=== PATIENT | female | born 1950 | race Caucasian/White ===

== ENCOUNTER 2023-07-07 12:13 | Outpatient (CLI) | payer MEDICARE, OTHER, SELFPAY ==
[2023-07-13 18:19] VITALS: BMI 34.9
--- NOTE | 2023-07-13 18:19 | WPDHOMESLEEP ---
Sleep Study - Home Unattended Date of Study: 07/07/23 Ordering Provider: Orlin Robles MD Interpreting Provider: Chiquis Reyes, DO Home Sleep Study Type: Watch PAT Height: 1.77 m Weight: 108.862 kg Body Mass Index: 34.9 Neck Circumference (inches): 15 [place]: 3 Reason for Sleep Study Re-evaluate for MIN after significant weight loss Sleep History The patient is a 72-year-old female with hypertension, hypothyroidism, history of breast cancer and MIN on CPAP that had a sleep study ordered by her primary care physician for re-evaluation of sleep apnea after significant weight loss. The patient denies awakening from sleep short of breath. She denies awakening at night with heartburn, belching or cough. He she denies snoring. She denies having trouble sleeping when she has a cold. She denies waking up gasping for air throughout the night. She denies having breathing problems at night observed by herself or others. She denies sweating excessively at night. She denies having heart palpitations or irregular heartbeats during the night. She denies falling asleep during the day and while driving. She denies sleep paralysis, cataplexy and hypnagogic / hypnopompic hallucinations. She denies having trouble at school or work due to sleepiness. She denies feeling afraid of going to sleep. She goes to bed at 9:30 p.m. on weekdays and at 10:30 p.m. on the weekends. It takes her 15-20 minutes to fall asleep. She wakes up twice throughout the night to urinate and is able to fall back asleep anywhere from a few minutes up to an hour. She wakes up at 5:00 a.m. on weekdays and between 6-630 a.m. on the weekends. She typically gets 7-8 hours of sleep per night. She will stay in bed for 15-20 minutes after waking up in the morning. She currently lives alone. She denies consuming any caffeinated beverages within 2 hours of bedtime. She denies engaging in physical exercise before bedtime. She denies reading and watching television before falling asleep. She denies taking naps in the afternoon or the evening. She does consume caffeinated beverages throughout the day. She will consume 5-6 alcoholic beverages per week. She denies tobacco and recreational drug use. [facility] Past Medical History Medical History H/O vaginal delivery History of breast cancer Hypertension Hypothyroidism Lymphedema due to malignant neoplasm right arm/ breast cancer Right ankle instability Surgical History Surgical History H/O right mastectomy H/O total knee replacement Bilat H/O vaginal hysterectomy History of tonsillectomy and adenoidectomy S/P lumpectomy of breast Social History Social History Social History: Patient is with a 1 daughter. Smoking packs per day: 0 Smoking cigarettes per day: 0.0 Smoking status: Unknown if ever smoked Alcohol intake: never Substance use: never Substance use type: does not use Lack of Transportation: No Lack of Food: Never True Current Housing: I Have Housing Concerned About Future Housing: No Difficulty Paying Gas/Electric Bills: No Difficulty Paying for Meds: No Currently Unemployed: No Education: Bachelor's Degree Difficulty w/ Childcare or Family Care: No Living arrangements: with family Occupation/Education: retired Gender identity (if verbalized by the patient): Male Sexual Orientation (if Verbalized by the Patient): Straight or Heterosexual Medications Home Medications Medication Instructions Recorded Confirmed Type anastrozole 1 mg tablet 1 mg PO DAILY #90 tabs 03/24/22 02/14/23 Rx acetaminophen 500 mg capsule 500 mg PO Q6H PRN 02/14/23 02/14/23 History beta-glucan 250 mg capsule mg PO 02/14/23 02/14/23 History semaglutide 0.25 mg or 0.5 mg (2 0.25 mg subcut WEEKLY 02/14/23
== END 2023-07-08 14:10 | disposition home or self-care (01) ==
LOC: ANHCSM 12:14
PROVIDERS: PCP Family Medicine; Visit Provider Family Medicine
DX: G47.30 Sleep apnea, unspecified (principal); G47.33 Obstructive sleep apnea (adult) (pediatric)
CPT/HCPCS: 95800

== ENCOUNTER 2023-09-22 09:04 | Outpatient (CLI) | payer MEDICARE, OTHER, SELFPAY ==
[2023-09-22 15:06] LABS: Alanine Aminotransferase 16 U/L (6-35); Albumin Level 4.4 g/dL (3.5-5.1); Alkaline Phosphatase 86 U/L (38-126); Anion Gap 6 mmol/L (4-12); Aspartate Amino Transferase 35 U/L (14-36); Bilirubin,Total 1.7 mg/dL (0.2-1.3); Blood Urea Nitrogen 12 mg/dL (7-17); Calcium 9.5 mg/dL (8.4-10.2); Carbon Dioxide 30 mmol/L (22-30); Chloride 92 mmol/L (98-107); Estimated Glomerular Filt Rate > 60; Glucose 71 mg/dL (65-110); Potassium 3.6 mmol/L (3.4-5.0); Sodium 128 mmol/L (137-145)
== END 2023-09-22 09:05 | disposition home or self-care (01) ==
PROVIDERS: PCP Family Medicine; Visit Provider Family Medicine
DX: E03.9 Hypothyroidism, unspecified (principal); I10 Essential (primary) hypertension
CPT/HCPCS: 36415; 80053; 84443

== ENCOUNTER 2024-04-26 12:33 | Outpatient (CLI) | payer MEDICARE, OTHER, SELFPAY ==
--- NOTE | ~2024-04-26 | XR_ITS ---
EXAMINATION: XR foot RT 2V DATE: 04/26/2024 12:45 INDICATION: Right foot injury and pain. TECHNIQUE: 2 views of right foot were obtained. COMPARISON: None. FINDINGS: There is severe hallux valgus. No fracture. There is moderate osteoarthritis of first metat arsophalangeal joint and mild to moderate osteoarthritis of some of the the interphalangeal joints an d midfoot joints. There is an enthesophyte at plantar aspect of the calcaneal tuberosity. There are t ension bands across the tibiofibular syndesmosis. IMPRESSION: 1. Polyarticular osteoarthritis. 2. Severe hallux valgus. Reviewed, dictated and finalized at location B. WALS SPECIALIST
== END 2024-04-26 12:34 | disposition home or self-care (01) ==
LOC: GOSHIMG 12:33
PROVIDERS: PCP Family Medicine; Visit Provider Family Medicine
DX: M19.071 Primary osteoarthritis, right ankle and foot (principal); M20.11 Hallux valgus (acquired), right foot
CPT/HCPCS: 73620

== ENCOUNTER 2024-04-27 00:20 | Day surgery (SDC) | payer MEDICARE, OTHER, SELFPAY ==
[2024-04-17 09:11] VITALS: BMI 33.8
--- OUTSIDE RECORDS SUMMARY | 2024-04-27 06:23 | XMS_ITS | Clinical Summary ---
Author Organization [facility] Address [facility] [facility] [place] [address] [place] [address] Care Team Providers Care Re Etcher Name Role Phone Omar Walter MD Primary Care Provider [phone] Allergies No known active allergies Medications amlodipine 5 MG tablet Take 5 mg by mouth daily. Active levothyroxine 112 MCG tablet Take 1 tablet by mouth daily. 02/21/2010 Active losartan-hydroch lorothiazide 100-25 MG tablet Take 1 tablet by mouth daily. Active metoprolol tartrate 25 MG tablet Take 25 mg by mouth daily. 06/08/2012 Active Social History Tobacco Use Types Packs/Day Years Used Date Smoking Tobacco: Never Smokeless Tobacco: Never Alcohol Use Standard Drinks/Week Comments Yes 3.3 (1 standard drink = 0.6 oz p ure alcohol) wine AUDIT-C Answer Date Recorded Frequency of Alcohol Consumption Never 02/24/2019 Average Number of Drinks Not on file 019 Frequency of Binge Drinking Not on file 02/03 Comments No Sex and Gender Information Value Date Recorded Sex Assigned at Not on file Legal Sex Female 8:08 PM CDT Gender Identity Choose not to disclose 7:13 AM ESTIMATOR JEWELRY Sexual Orientation Choose not to disclose 2020 7:13 AM ESTIMATOR JEWELRY Last Filed Vital Signs Vital Sign Reading Time Taken Comments Blood Pressure 139/88 04/03/2021 7:06 AM ESTIMATOR JEWELRY Pulse 71 04/03/2021 7:06 AM ESTIMATOR JEWELRY Temperature 36.6 ??C (97.8 ??F) 04/03/2021 7:06 AM CS T Respiratory Rate 18 04/03/2021 7:06 AM ESTIMATOR JEWELRY Oxygen Saturation 98% 04/03/2021 7:06 AM ESTIMATOR JEWELRY Inhaled Oxygen Concentration - - Weight 131.5 kg (290 lb) 04/03/2021 7:06 AM ESTIMATOR JEWELRY Height 175.3 cm (5' 9 ) 04/03/2021 7:06 AM ESTIMATOR JEWELRY Body Mass Index 42.83 04/03/2021 7:06 AM ESTIMATOR JEWELRY Plan of Treatment Health Maintenance Due Date Last Done Comments Colorectal Cancer Screening Colonoscopy (10 Years) 1952 Hepatitis C 1970 Zoster Vaccines (1 of 2) 2002 Annual Medicare Wellness Visit 2017 Pneumococcal Vaccine: 65+ Years (1 of 1 - PCV) 2017 DTaP, Tdap and Td Vaccines (4 - Td or Tdap) 04/04/2021 04/04/2011, 11/13/2010, 02/15/2007 COVID-19 Vaccine ( season) 2023 Influenza Adult (#1) 2024 05/08/2012, 01/29/2009, 01/16/2009, Additional history exists RSV Immunization or 60+ Years (1 - 1-dose 75+ series) 12/09/2027 Meningococcal Vaccine Aged Out No najma iraj eligible based on patient's age to complete this topic RSV Immunizations Under 20 Months Aged Out No longer eligible based on patient's age to complete this topic Insurance MEDICARE [facility] Care Teams Re Etcher Relationship Specialty Start Date End Date Omar Walter MD [address] [place] [id number] PCP - General INTERNAL MEDICINE 02/24/19
[2024-04-27 11:02] VITALS: BP 189/87; PULSE 63; RESP 20; TEMP 36.6
[2024-04-27] MEDS: LACTATED RINGERS 1,000 ML 150 ML IV CONT (12:00)
--- NOTE | 2024-04-27 12:33 | PM.IMHP ---
H&P: HPI History of Present Illness Date/Time: 04/27/24 12:33 Chief Complaint: History of colon polyps Narrative: The patient has a history of colonic polyps, the last colonoscopy was 5 years ago Review of Systems Review of Systems: All systems reviewed & are unremarkable except as noted in HPI and below PMFSH Past Medical History Medical History Lymphedema due to malignant neoplasm right arm/ breast cancer H/O vaginal delivery Right ankle instability History of breast cancer Hypothyroidism Hypertension Surgical History Surgical History H/O vaginal hysterectomy H/O total knee replacement Bilat History of tonsillectomy and adenoidectomy H/O right mastectomy S/P lumpectomy of breast Social History Social History Social History: Patient is with a 1 daughter. Smoking packs per day: 0 Smoking cigarettes per day: 0.0 Smoking status: Never smoker Alcohol intake: current Drinks per week: 4 Alcohol use details: glasses wine Substance use: never Substance use type: does not use Lack of Transportation: No Lack of Food: Never True Current Housing: I Have Housing Concerned About Future Housing: No Difficulty Paying Gas/Electric Bills: No Difficulty Paying for Meds: No Currently Unemployed: No Education: Bachelor's Degree Difficulty w/ Childcare or Family Care: No Living arrangements: with family Occupation/Education: retired Gender identity (if verbalized by the patient): Male Sexual Orientation (if Verbalized by the Patient): Straight or Heterosexual Spiritual care concerns: No Meds Home Medications and Allergies Home Medications ?Medication ?Instructions ?Recorded ?Confirmed ?Type anastrozole 1 mg tablet 1 mg PO DAILY #90 tabs 03/24/22 04/27/24 Rx beta-glucan 250 mg capsule 250 mg PO DAILY 02/14/23 04/27/24 History levothyroxine 100 mcg tablet 100 mcg PO DAILY #90 tabs 06/10/23 04/27/24 Rx (Synthroid) silicon breast prosthesis #1 ea 06/10/23 04/19/24 Rx CPAP #1 ea 07/14/23 04/19/24 Rx hydroxychloroquine 200 mg tablet 200 mg PO DAILY PRN arthritis 02/10/24 04/19/24 History losartan 100 1 tablet PO DAILY #90 tabs 04/16/24 04/27/24 Rx mg-hydrochlorothiazide 25 mg tablet bioastin 4 mg PO DAILY 04/17/24 04/27/24 History cyanocobalamin (vitamin B-12) 1,000 mcg subcut WEEKLY 04/17/24 04/27/24 History 1,000 mcg/mL injection solution mitapure 4 cap PO DAILY 04/17/24 04/27/24 History quercetin 2 cap PO DAILY 04/17/24 04/27/24 History triamcinolone acetonide 0.1 % 1 applic topical BID PRN rash 04/17/24 04/19/24 History topical cream losartan 100 mg tablet 100 mg PO DAILY #90 tabs 04/20/24 04/27/24 Rx metoprolol succinate 25 mg 25 mg PO DAILY #90 tabs 04/20/24 04/27/24 Rx tablet,extended release 24 hr Allergies Allergy/AdvReac Type Severity Reaction Status Date / Time bacitracin Allergy Unknown Rash Verified 04/27/24 10:59 Vital Signs Vital Signs - 24 hr 04/27/24 11:02 Temperature 98 F Pulse Rate 63 Respiratory Rate 20 Blood Pressure 189/87 H Oxygen Delivery Room Air Exam Const: General: cooperative and healthy appearing Resp: Effort & Inspection: normal respiratory effort and able to speak in complete sentences Auscultation: clear to auscultation bilaterally Cardio: Rate: regular rate Rhythm: regular rhythm GI: Inspection: normal to inspection GI Palp: No No hepatosplenomegaly present Auscultation: normal bowel sounds Rectal Exam: deferred Skin: General skin exam: normal color Psych: Appearance: grossly normal Mental Status: mental status grossly normal Assessment and Plan Assessment and plan (1) Colon cancer screening: Code(s): Z12.11 - Encounter for screening for malignant neoplasm of colon Status: Acute Assessment and Plan: The patient is deemed a good candidate for the procedure. Consent signed. Will proceed.
--- NOTE | 2024-04-27 12:40 | P.PNAN_ITS ---
Anes - Initial Pre Proc Eval Procedure: Operation Date: 04/27/24 11:30 Proposed Procedures p Screening Colonoscopy - Ricardo Gonzalez MD Date/Time: 04/27/24 12:40 Surgeon: Ricardo Gonzalez MD Pre Op Diagnosis: Screening for malignant neoplasm of colon Patient Data Age: 73 Gender: F Height: 1.77 m Weight: 105.3 kg Last Vital Signs Temp 98 F 04/27/24 11:02 Pulse 63 04/27/24 11:02 Resp 20 04/27/24 11:02 BP 189/87 H 04/27/24 11:02 O2 Del Method Room Air 04/27/24 11:02 Allergies Allergy/AdvReac Type Severity Reaction Status Date / Time bacitracin Allergy Unknown Rash Verified 04/27/24 10:59 Home Medications ?Medication ?Instructions ?Recorded ?Confirmed ?Type anastrozole 1 mg tablet 1 mg PO DAILY #90 tabs 03/24/22 04/27/24 Rx beta-glucan 250 mg capsule 250 mg PO DAILY 02/14/23 04/27/24 History levothyroxine 100 mcg tablet 100 mcg PO DAILY #90 tabs 06/10/23 04/27/24 Rx (Synthroid) silicon breast prosthesis #1 ea 06/10/23 04/19/24 Rx CPAP #1 ea 07/14/23 04/19/24 Rx hydroxychloroquine 200 mg tablet 200 mg PO DAILY PRN arthritis 02/10/24 04/19/24 History losartan 100 1 tablet PO DAILY #90 tabs 04/16/24 04/27/24 Rx mg-hydrochlorothiazide 25 mg tablet bioastin 4 mg PO DAILY 04/17/24 04/27/24 History cyanocobalamin (vitamin B-12) 1,000 mcg subcut WEEKLY 04/17/24 04/27/24 History 1,000 mcg/mL injection solution mitapure 4 cap PO DAILY 04/17/24 04/27/24 History quercetin 2 cap PO DAILY 04/17/24 04/27/24 History triamcinolone acetonide 0.1 % 1 applic topical BID PRN rash 04/17/24 04/19/24 History topical cream losartan 100 mg tablet 100 mg PO DAILY #90 tabs 04/20/24 04/27/24 Rx metoprolol succinate 25 mg 25 mg PO DAILY #90 tabs 04/20/24 04/27/24 Rx tablet,extended release 24 hr Patient hx anesthesia problems: none Family hx anesthesia problems: none Results Review: All pre-operative results and documents have been reviewed as part of the pre- operative evaluation. [facility] Past Medical History Medical History Lymphedema due to malignant neoplasm right arm/ breast cancer H/O vaginal delivery Right ankle instability History of breast cancer Hypothyroidism Hypertension Surgical History Surgical History H/O vaginal hysterectomy H/O total knee replacement Bilat History of tonsillectomy and adenoidectomy H/O right mastectomy S/P lumpectomy of breast Social History Social History Social History: Patient is with a 1 daughter. Smoking packs per day: 0 Smoking cigarettes per day: 0.0 Smoking status: Never smoker Alcohol intake: current Drinks per week: 4 Alcohol use details: glasses wine Substance use: never Substance use type: does not use Lack of Transportation: No Lack of Food: Never True Current Housing: I Have Housing Concerned About Future Housing: No Difficulty Paying Gas/Electric Bills: No Difficulty Paying for Meds: No Currently Unemployed: No Education: Bachelor's Degree Difficulty w/ Childcare or Family Care: No Living arrangements: with family Occupation/Education: retired Gender identity (if verbalized by the patient): Male Sexual Orientation (if Verbalized by the Patient): Straight or Heterosexual Spiritual care concerns: No Anes - Eval Final PreProcedure Day of Procedure 04/27/24 12:40 Patient weight: obese Heart: regular rate and rhythm Lungs: normal air movement Airway: Mallampati scale class II Neurological: alert and oriented Last oral intake: >/= 8 hours ASA classification: III Emergent: no Anesthetic plan: proceed Anesthesia type and monitoring: general GIVS and standard monitoring Results Review: All pre-operative results and documents have been reviewed as part of the pre- operative evaluation. HTN, hypothyroidism, MIN on CPAP setting 10-15. Pt active w wt training, no cp or sob. Informed Consent: The patient's anesthetic plan and its attendant risks and benefits were discussed with the patient/family/POA. Questions were solicited and answers provided to the satisfaction of the patient/family/POA.
[2024-04-27 13:12] VITALS: BP 155/89; PULSE 63; RESP 20; O2SAT 98
[2024-04-27 13:22] VITALS: BP 183/105; PULSE 57; RESP 20; O2SAT 100
[2024-04-27 13:32] VITALS: BP 184/91; PULSE 58; RESP 16; O2SAT 100
== END 2024-04-27 13:37 | disposition home or self-care (01) ==
PROVIDERS: PCP Family Medicine; Visit Provider Internal Medicine Gastroenterology
PROC: 0DJD8ZZ Inspection of Lower Intestinal Tract, Via Natural or Artificial Opening Endoscopic (ICD-10-PCS; CPT 45378; principal; 2024-04-27 11:30)
DX: Z12.11 Encounter for screening for malignant neoplasm of colon (principal); K63.5 Polyp of colon; K57.30 Diverticulosis of large intestine without perforation or abscess without bleeding; I10 Essential (primary) hypertension; E03.9 Hypothyroidism, unspecified; E66.9 Obesity, unspecified; Z68.33 Body mass index [BMI] 33.0-33.9, adult; Z99.89 Dependence on other enabling machines and devices; Z98.890 Other specified postprocedural states; Z85.3 Personal history of malignant neoplasm of breast
CPT/HCPCS: 45385; 88305; J2003; J2704; J7120

== ENCOUNTER 2024-08-17 08:39 | Outpatient (CLI) | payer MEDICARE, OTHER, SELFPAY ==
--- OUTSIDE RECORDS SUMMARY | 2024-08-17 08:48 | XMS_ITS | Clinical Summary ---
Author Organization [facility] Address [facility] [place] [address] Care Team Providers Care Mine Technician Name Role Phone Omar Walter MD Primary Care Provider [phone] Allergies No known active allergies Medications amlodipine [...] Identity Choose not to disclose 7:13 AM PATTERN CHANGER Sexual Orientation Choose not to disclose 2020 7:13 AM PATTERN CHANGER Last Filed Vital Signs Vital Sign Reading Time Taken Comments Blood Pressure 139/88 04/03/2021 7:06 AM PATTERN CHANGER Pulse 71 04/03/2021 7:06 AM PATTERN CHANGER Temperature 36.6 C (97.8 F) 04/03/2021 7:06 AM PATTERN CHANGER Respiratory Rate 18 04/03/2021 7:06 AM PATTERN CHANGER Oxygen Saturation 98% 04/03/2021 7:06 AM PATTERN CHANGER Inhaled Oxygen Concentration - - Weight 131.5 kg (290 lb) 04/03/2021 7:06 AM PATTERN CHANGER Height 175.3 cm (5' 9 ) 04/03/2021 7:06 AM PATTERN CHANGER Body Mass Index 42.83 04/03/2021 7:06 AM PATTERN CHANGER Plan of Treatment Health Maintenance Due Date Last Done Comments Colorectal Cancer Screening Colonoscopy (10 Years) 1952 Hepatitis C 1970 Pneumococcal Vaccine: 50+ Years (1 of 1 - PCV) 2002 Zoster Vaccines (1 of 2) 2002 Annual Medicare Wellness Visit 2017 DTaP, Tdap and Td Vaccines ( 4 - Td or Tdap) 04/04/2021 04/04/2011, 11/13/2010, 02/15/2007 COVID-19 Vaccine ( - 2023-2 5 season) 2023 RSV Immunization or 60+ Years (1 - 1-dose 75+ series) 12/09/2027 Meningococcal B Vaccine Aged Out No l onger eligible based on patient's age to complete this topic Meningococcal Vaccine Aged Out No najma iraj eligible based on patient's age to complete this topic RSV Immunizations Under 20 Months Aged Out No longer eligible b ased on patient's age to complete this topic Insurance [address] [place] [address] MEDICARE [facility] Care Teams Mine Technician Relationship Specialty Start Date End Date Omar Walter MD [address] [place] [phone] PCP - General INTERNAL MEDICINE 02/24/19
[2024-08-17 12:30] LABS: Alanine Aminotransferase 17 U/L (6-35); Albumin Level 4.2 g/dL (3.5-5.1); Alkaline Phosphatase 101 U/L (38-126); Anion Gap 8 mmol/L (4-12); Aspartate Amino Transferase 45 U/L (14-36); Blood Urea Nitrogen 12 mg/dL (7-17); Calcium 9.1 mg/dL (8.4-10.2); Carbon Dioxide 26 mmol/L (22-30); Chloride 99 mmol/L (98-107); Estimated Glomerular Filt Rate > 60; Glucose 78 mg/dL (65-110); Potassium 3.8 mmol/L (3.4-5.0); Sodium 133 mmol/L (137-145)
== END 2024-08-17 08:40 | disposition home or self-care (01) ==
LOC: ANHGOSHLAB 08:40
PROVIDERS: PCP Family Medicine; Visit Provider Family Medicine
DX: E87.1 Hypo-osmolality and hyponatremia (principal); R74.01 Elevation of levels of liver transaminase levels
CPT/HCPCS: 36415; 80053

== ENCOUNTER 2025-02-27 08:55 | Outpatient (CLI) | payer MEDICARE, OTHER, SELFPAY ==
--- OUTSIDE RECORDS SUMMARY | 2025-02-27 09:19 | XMS_ITS | Clinical Summary ---
Author Organization [facility] Address [facility] [place] [address] Care Team Providers Care Greige Goods Inspector Name Role Phone Omar Walter MD Primary Care Provider [phone] Allergies No known active allergies Medications amlodipine [...] Identity Choose not to disclose 7:13 AM PAN GREASER Sexual Orientation Choose not to disclose 2020 7:13 AM PAN GREASER Last Filed Vital Signs Vital Sign Reading Time Taken Comments Blood Pressure 139/88 04/03/2021 7:06 AM PAN GREASER Pulse 71 04/03/2021 7:06 AM PAN GREASER Temperature 36.6 C (97.8 F) 04/03/2021 7:06 AM PAN GREASER Respiratory Rate 18 04/03/2021 7:06 AM PAN GREASER Oxygen Saturation 98% 04/03/2021 7:06 AM PAN GREASER Inhaled Oxygen Concentration - - Weight 131.5 kg (290 lb) 04/03/2021 7:06 AM PAN GREASER Height 175.3 cm (5' 9) 04/03/2021 7:06 AM PAN GREASER Body Mass Index 42.83 04/03/2021 7:06 AM PAN GREASER Plan of Treatment Health Maintenance Due Date Last Done Comments Colorectal Cancer Screening Colonoscopy (10 Years) 1952 Hepatitis C 1970 Pneumococcal Vaccine: 50+ Years (1 of 1 - PCV) 2002 Zoster Vaccines (1 of 2) 2002 Annual Medicare Wellness Visit 2017 DTaP, Tdap and Td Vaccines (4 - Td or Tdap) 04/04/2021 04/04/2011, 11/13/2010, 02/15/2007 COVID-19 Vaccine ( - season) 2024 Influenza Adult (#1) 2025 05/08/2012, 01/29/2009, 01/16/2009, Additional history exists RSV Immunization or 60+ Years (1 - 1-dose 75+ series) 12/09/2027 Hepatitis A Vaccines Aged Out No long er eligible based on patient's age to complete this topic Meningococcal B Vaccine Aged Out No l onger eligible based on patient's age to complete this topic Meningococcal Vaccine Aged Out No najma iraj eligible based on patient's age to complete this topic RSV Immunizations Under 20 Months Aged Out No longer eligible based on patient's age to complete this topic Insurance MEDICARE [facility] Care Teams Greige Goods Inspector Relationship Specialty Start Date End Date Omar Walter MD [address] [place] [id number] PCP - General INTERNAL MEDICINE 02/24/19
[2025-02-27 13:15] LABS: Alanine Aminotransferase 16 U/L (6-35); Albumin Level 4.5 g/dL (3.5-5.1); Alkaline Phosphatase 101 U/L (38-126); Anion Gap 9 mmol/L (4-12); Aspartate Amino Transferase 58 U/L (14-36); Bilirubin,Total 1.1 mg/dL (0.2-1.3); Blood Urea Nitrogen 9 mg/dL (7-17); Calcium 9.5 mg/dL (8.4-10.2); Carbon Dioxide 25 mmol/L (22-30); Chloride 99 mmol/L (98-107); Cholesterol 215 mg/dL (0-200); Estimated Glomerular Filt Rate > 60; Glucose 74 mg/dL (65-110); HDL Direct 55 mg/dL; Potassium 3.6 mmol/L (3.4-5.0); Sodium 133 mmol/L (137-145); Total Protein 8.2 g/dL (6.3-8.2); Triglycerides 119 mg/dL (<150)
[2025-02-27 13:31] LABS: Thyroid Stimulating Hormone Reflex 2.210 uIU/mL (0.465-4.68)
[2025-02-28 13:42] LABS: Hemoglobin A1C 5.0 % (<5.7)
== END 2025-02-27 08:56 | disposition home or self-care (01) ==
LOC: ANHGOSHLAB 08:56
PROVIDERS: PCP Family Medicine; Visit Provider Family Medicine
DX: E78.5 Hyperlipidemia, unspecified (principal); E03.9 Hypothyroidism, unspecified; E87.1 Hypo-osmolality and hyponatremia; R74.01 Elevation of levels of liver transaminase levels
CPT/HCPCS: 36415; 80053; 80061; 83036; 84443